=== PATIENT | male | born 1950 | race Caucasian/White ===

== ENCOUNTER 2017-10-31 22:14 | Inpatient (IN) | payer MEDICARE, OTHER ==
[~2017-10-31] VITALS: Ht 182.9 cm; Wt 77.0 kg
[~2017-10-31 22:14] MED LIST: AMLO5TAB16 PO; DOCU100C40 PO; HYDR-3973 PO; INSU100I25 SQ; LACT1CAP26 PO; METO25TA6 PO
[2017-10-31] MEDS ORDERED: dextrose 50%-water 50ml dispensing syringe IV ONE (23:05)
[2017-10-31 23:30] LABS: BASOPHILS % (AUTO) 0 % (0-1); EOSINOPHILS # (AUTO) 0.2 X10'3 (0-0.9); EOSINOPHILS % (AUTO) 1.1 % (0-6); HEMATOCRIT 32.4 % (42.0-52.0); HEMOGLOBIN 11.3 g/dl (14.0-17.9); LYMPHOCYTES # (AUTO) 0.6 X10'3 (1.1-4.8); LYMPHOCYTES % (AUTO) 4.1 % (21-51); MEAN CORPUSCULAR VOLUME 88.3 FL (78-98); MEAN PLATELET VOLUME 6.5 FL (7.4-10.4); MONOCYTES # (AUTO) 1.3 X10'3 (0-0.9); MONOCYTES % (AUTO) 8.4 % (2-12); NEUTROPHILS % (AUTO) 86.4 % (42-75); PLATELET COUNT 137 X10'3 (140-440); RED BLOOD COUNT 3.66 X10'6 (4.70-6.10); RED CELL DISTRIBUTION WIDTH 14.1 % (11.5-14.5)
[2017-10-31 23:46] LABS: ALANINE AMINOTRANSFERASE 42 U/L (12-78); ALBUMIN 3.5 G/DL (3.4-5.0); ALBUMIN/GLOBULIN RATIO 0.7 (1.1-1.5); ALKALINE PHOSPHATASE 90 IU/L (46-116); ANION GAP 13 (8-16); ASPARTATE AMINO TRANSFERASE 26 U/L (10-37); BILIRUBIN,TOTAL 0.5 MG/DL (0.1-1.0); BLOOD UREA NITROGEN 64 MG/DL (7-18); BUN/CREATININE RATIO 22.1 (5.4-32.0); CALCIUM 9.4 MG/DL (8.5-10.1); CHLORIDE 100 MMOL/L (99-107); CREATININE 2.89 MG/DL (0.60-1.10); GLUCOSE 68 MG/DL (70-104); POTASSIUM 3.4 MMOL/L (3.5-5.1); SODIUM 137 MMOL/L (135-145); TOTAL CARBON DIOXIDE 24.1 MMOL/L (24-32); TOTAL PROTEIN 8.6 G/DL (6.4-8.2); eGFR 22 ML/MIN
[2017-11-01] MEDS ORDERED: LANTUS SQ (00:08)
[2017-11-01] MEDS ORDERED: LOSA25TA96 PO (00:08)
[2017-11-01] MEDS ORDERED: ATEN-169 PO (00:08)
[2017-11-01] MEDS ORDERED: ATOR40TA PO (00:08)
[2017-11-01] MEDS ORDERED: normal saline 1000ml 1,000 ML IV ONE (00:15)
[2017-11-01] MEDS: potassium CL 20mEq in D5-1/2NS 1,000 ML IV SCH ×2 (00:16→10:10)
[2017-11-01 00:18] LABS: CLARITY,URINE CLOUDY (Clear); COLOR,URINE YELLOW (Yellow); GLUCOSE, URINE 100 mg/dl (Neg); KETONES,URINE NEGATIVE (Neg); LEUKOCYTE ESTERASE ,URINE LARGE (Neg); NITRITES, URINE NEGATIVE (Neg); OCCULT BLOOD,URINE LARGE (Neg); PROTEIN,URINE 100 mg/dl (Neg); UROBILINOGEN,URINE 0.2 E.U/dL (0.2-1.0)
[2017-11-01 00:31] LABS: UA COLLECTION TYPE CLN CATCH MIDSTREAM
[2017-11-01 00:32] LABS: BACTERIA,URINE FEW /HPF (Neg); SQUAMOUS EPITHELIAL CELL,UR FEW /LPF (FEW); WBC,URINE TNTC /HPF (0-4)
[2017-11-01 00:33] LABS: WBC CLUMPS,URINE MODERATE /HPF (NEGATIVE)
[2017-11-01] MEDS ORDERED: CefTRIAXone/D5W-Rocephin 1gm 50 ML IV ONE (00:40)
[2017-11-01 00:41] LABS: URINE AMPHETAMINE SCREEN NEGATIVE (Neg); URINE BARBITUATE SCREEN NEGATIVE (Neg); URINE BENZODIAZEPINES SCREEN NEGATIVE (Neg); URINE CANNABINOID SCREEN POSITIVE (Neg); URINE COCAINE SCREEN NEGATIVE (Neg); URINE METHADONE SCREEN NEGATIVE (Neg); URINE OPIATE SCREEN NEGATIVE (Neg); URINE PHENCYCLIDINE SCREEN NEGATIVE (Neg)
[2017-11-01] MEDS ORDERED: CefTRIAXone/D5W-Rocephin 1gm 50 ML IV STA (00:45)
[2017-11-01] MEDS: dextrose 5%-1/2 normal saline 1,000 ML IV SCH ×2 (01:59→11:59)
[2017-11-01] MEDS ORDERED: magnesium hydroxide 30ml (MOM) UD suspension PO PRN (02:00)
[2017-11-01] MEDS ORDERED: ondansetron/PF 4mg/2ml inj IV PRN (02:00)
[2017-11-01] MEDS ORDERED: magnesium Cl slow-release 64mg tablet PO PRN (02:00)
[2017-11-01] MEDS ORDERED: potassium Cl 20 mEq SR tablet PO PRN (02:00)
[2017-11-01] MEDS ORDERED: mag hydrox/Alum hydrox/simeth 30ml oral suspension PO PRN (02:00)
[2017-11-01] MEDS ORDERED: magnesium 4gm in 100ml NS 100 ML IV PRN (02:00)
[2017-11-01] MEDS ORDERED: magnesium 2GM in 50ml NS 50 ML IV PRN (02:00)
[2017-11-01] MEDS ORDERED: acetaminophen 325mg tablet PO PRN (02:00)
[2017-11-01] MEDS ORDERED: potassium Cl 40MEQ/NS 500ml 500 ML IV PRN ×2 (02:00)
[2017-11-01] MEDS: K and/or MAG REPLACEMENT MC SCH (08:00)
[2017-11-01] MEDS: amLODIPine 5mg tablet PO SCH (10:11)
[2017-11-01] MEDS: atenolol 50mg tablet PO SCH (10:11)
[2017-11-01] MEDS: CefTRIAXone 2gm/NS 100ml IVPB 100 ML IV SCH (10:11)
[2017-11-01] MEDS: heparin, porcine 5000 units/ml vial SQ SCH ×2 (10:12→19:13)
[2017-11-01] MEDS: potassium Cl 20 mEq SR tablet PO PRN ×3 (10:58→19:12)
[2017-11-01] MEDS: losartan 25mg tablet PO SCH (10:58)
[2017-11-01] MEDS ORDERED: glucagon, human recombinant 1mg kit SUBCUT PRN (12:30)
[2017-11-01] MEDS ORDERED: dextrose ORAL solution 15 GM/59 ML bottle PO PRN ×2 (12:30)
[2017-11-01] MEDS ORDERED: dextrose 50%-water 50ml dispensing syringe IV PRN (12:30)
[2017-11-01] MEDS ORDERED: insulin regular, human vial - multi-dose SQ SCH (15:25)
[2017-11-01] MEDS: insulin Lispro (HumaLOG) vial - multi-dose SQ SCH (18:59)
[2017-11-01] MEDS: lactobacillus rhamnosus 10,000 MMU CELLS/CAPSULE PO SCH (19:12)
[2017-11-01 19:30] VITALS: BP 136/67
[2017-11-01] MEDS: atorvastatin 20mg tablet PO SCH (21:05)
[2017-11-01] MEDS: insulin glargine (Lantus) pen - multi-dose SQ SCH (21:11)
[2017-11-01] MEDS ORDERED: Melatonin 3mg tablet PO PRN (23:35)
[2017-11-02] VITALS (7 sets, daily range): BP systolic 92–143; BP diastolic 55–71
[2017-11-02 05:31] LABS: BASOPHILS % (AUTO) 0 % (0-1); EOSINOPHILS # (AUTO) 0.1 X10'3 (0-0.9); EOSINOPHILS % (AUTO) 1.1 % (0-6); HEMATOCRIT 28.4 % (42.0-52.0); LYMPHOCYTES # (AUTO) 0.7 X10'3 (1.1-4.8); LYMPHOCYTES % (AUTO) 6.4 % (21-51); MEAN CORPUSCULAR HEMOGLOBIN 31.2 PG (27.0-31.0); MEAN CORPUSCULAR HGB CONC 35.4 % (33.0-36.5); MEAN CORPUSCULAR VOLUME 88.1 FL (78-98); MEAN PLATELET VOLUME 7.5 FL (7.4-10.4); MONOCYTES # (AUTO) 0.8 X10'3 (0-0.9); MONOCYTES % (AUTO) 7.6 % (2-12); NEUTROPHILS # (AUTO) 8.9 X10'3 (1.8-7.7); NEUTROPHILS % (AUTO) 84.9 % (42-75); PLATELET COUNT 141 X10'3 (140-440); RED BLOOD COUNT 3.22 X10'6 (4.70-6.10); RED CELL DISTRIBUTION WIDTH 13.8 % (11.5-14.5); WHITE BLOOD COUNT 10.5 X10'3 (4.5-11.0)
[2017-11-02 06:17] LABS: ALANINE AMINOTRANSFERASE 59 U/L (12-78); ALBUMIN 2.8 G/DL (3.4-5.0); ALBUMIN/GLOBULIN RATIO 0.7 (1.1-1.5); ALKALINE PHOSPHATASE 79 IU/L (46-116); ANION GAP 12 (8-16); ASPARTATE AMINO TRANSFERASE 35 U/L (10-37); BILIRUBIN,TOTAL 0.3 MG/DL (0.1-1.0); BLOOD UREA NITROGEN 59 MG/DL (7-18); BUN/CREATININE RATIO 24.2 (5.4-32.0); CALCIUM 8.6 MG/DL (8.5-10.1); CHLORIDE 106 MMOL/L (99-107); CHOL/HDL RATIO 8.8 (0.00-4.99); CHOLESTEROL 114 MG/DL (0-200); CREATININE 2.44 MG/DL (0.60-1.10); GLUCOSE 177 MG/DL (70-104); HDL CHOLESTEROL 13 MG/DL (35-60); LDL CHOLESTEROL 57 MG/DL (50-100); MAGNESIUM 2.1 MG/DL (1.5-2.4); POTASSIUM 4.7 MMOL/L (3.5-5.1); SODIUM 139 MMOL/L (135-145); TRIGLYCERIDES 232 MG/DL (20-135); eGFR 27 ML/MIN
[2017-11-02] MEDS: K and/or MAG REPLACEMENT MC SCH (08:00)
[2017-11-02] MEDS: CefTRIAXone 2gm/NS 100ml IVPB 100 ML IV SCH (08:08)
[2017-11-02] MEDS: amLODIPine 5mg tablet PO SCH (08:11)
[2017-11-02] MEDS: losartan 25mg tablet PO SCH (08:11)
[2017-11-02] MEDS: lactobacillus rhamnosus 10,000 MMU CELLS/CAPSULE PO SCH ×2 (08:11→21:20)
[2017-11-02] MEDS: heparin, porcine 5000 units/ml vial SQ SCH ×2 (08:12→21:10)
[2017-11-02] MEDS: atenolol 50mg tablet PO SCH (08:12)
[2017-11-02] MEDS: insulin Lispro (HumaLOG) vial - multi-dose SQ SCH ×3 (08:52→19:25)
[2017-11-02] MEDS: ferrous sulfate 325mg tablet PO SCH ×2 (13:28→17:41)
[2017-11-02] MEDS: atorvastatin 20mg tablet PO SCH (21:09)
[2017-11-02] MEDS: insulin glargine (Lantus) pen - multi-dose SQ SCH (21:17)
[2017-11-03] VITALS: BP 136/60
[2017-11-03 05:10] LABS: BASOPHILS % (AUTO) 0.1 % (0-1); EOSINOPHILS # (AUTO) 0.1 X10'3 (0-0.9); EOSINOPHILS % (AUTO) 1.5 % (0-6); HEMOGLOBIN 9.4 g/dl (14.0-17.9); LYMPHOCYTES # (AUTO) 1.1 X10'3 (1.1-4.8); LYMPHOCYTES % (AUTO) 14.8 % (21-51); MEAN CORPUSCULAR HEMOGLOBIN 30.5 PG (27.0-31.0); MEAN CORPUSCULAR HGB CONC 34.6 % (33.0-36.5); MEAN CORPUSCULAR VOLUME 88.1 FL (78-98); MEAN PLATELET VOLUME 7.3 FL (7.4-10.4); MONOCYTES # (AUTO) 0.8 X10'3 (0-0.9); MONOCYTES % (AUTO) 11.6 % (2-12); NEUTROPHILS # (AUTO) 5.1 X10'3 (1.8-7.7); PLATELET COUNT 128 X10'3 (140-440); RED BLOOD COUNT 3.07 X10'6 (4.70-6.10); RED CELL DISTRIBUTION WIDTH 13.6 % (11.5-14.5); WHITE BLOOD COUNT 7.1 X10'3 (4.5-11.0)
[2017-11-03 05:21] LABS: ALANINE AMINOTRANSFERASE 73 U/L (12-78); ALBUMIN 2.4 G/DL (3.4-5.0); ALBUMIN/GLOBULIN RATIO 0.6 (1.1-1.5); ALKALINE PHOSPHATASE 72 IU/L (46-116); ANION GAP 11 (8-16); ASPARTATE AMINO TRANSFERASE 37 U/L (10-37); BILIRUBIN,TOTAL 0.3 MG/DL (0.1-1.0); BLOOD UREA NITROGEN 59 MG/DL (7-18); BUN/CREATININE RATIO 22.2 (5.4-32.0); CALCIUM 8.3 MG/DL (8.5-10.1); CHLORIDE 105 MMOL/L (99-107); CREATININE 2.66 MG/DL (0.60-1.10); GLUCOSE 194 MG/DL (70-104); MAGNESIUM 2.1 MG/DL (1.5-2.4); POTASSIUM 4.7 MMOL/L (3.5-5.1); SODIUM 136 MMOL/L (135-145); TOTAL PROTEIN 6.5 G/DL (6.4-8.2); eGFR 24 ML/MIN
[2017-11-03] MEDS: lactobacillus rhamnosus 10,000 MMU CELLS/CAPSULE PO SCH (08:00)
[2017-11-03] MEDS: heparin, porcine 5000 units/ml vial SQ SCH (08:00)
[2017-11-03] MEDS: losartan 25mg tablet PO SCH (08:00)
[2017-11-03] MEDS: amLODIPine 5mg tablet PO SCH (08:00)
[2017-11-03] MEDS: atenolol 50mg tablet PO SCH (08:00)
[2017-11-03] MEDS: K and/or MAG REPLACEMENT MC SCH (08:00)
[2017-11-03] MEDS: CefTRIAXone 2gm/NS 100ml IVPB 100 ML IV SCH (08:00)
[2017-11-03] MEDS: ferrous sulfate 325mg tablet PO SCH ×2 (09:11→12:44)
[2017-11-03] MEDS: insulin Lispro (HumaLOG) vial - multi-dose SQ SCH (09:12)
[2017-11-03 09:21] VITALS: BP 99/60
[2017-11-03] MEDS ORDERED: FER325T PO (09:27)
[2017-11-03] MEDS ORDERED: INSU100I25 SQ (09:27)
[2017-11-03] MEDS ORDERED: CIPR-230 PO (09:29)
[2017-11-03 11:54] VITALS: BP 120/52
== END 2017-11-03 17:18 | disposition home or self-care (01) | DRG 683 ==
LOC: ER 22:14 → ED HOLD 11-01 01:59 → SUR 3N 11-01 19:26
PROVIDERS: ADMIT Internal Medicine; ATTEND Internal Medicine
DX: N17.9 Acute kidney failure, unspecified (principal); N39.0 Urinary tract infection, site not specified; E11.22 Type 2 diabetes mellitus with diabetic chronic kidney disease; E11.649 Type 2 diabetes mellitus with hypoglycemia without coma; I95.2 Hypotension due to drugs; D64.9 Anemia, unspecified; I12.9 Hypertensive chronic kidney disease with stage 1 through stage 4 chronic kidney disease, or unspecified chronic kidney disease; N18.9 Chronic kidney disease, unspecified; E87.6 Hypokalemia; E78.5 Hyperlipidemia, unspecified; T50.905A Adverse effect of unspecified drugs, medicaments and biological substances, initial encounter; F12.90 Cannabis use, unspecified, uncomplicated; Z79.4 Long term (current) use of insulin; Z79.899 Other long term (current) drug therapy; Z87.891 Personal history of nicotine dependence; Y92.89 Other specified places as the place of occurrence of the external cause
CPT/HCPCS: 36415; 71045; 80053; 80061; 80305; 81001; 82948; 83036; 83605; 83735; 85025; 87040; 87070; 87077; 87088; 87186; 96365; 96374; 99285; J0696; J1644; J1815; J7030

== ENCOUNTER 2017-12-09 10:41 | Emergency (ER) | payer MEDICARE, OTHER ==
[~2017-12-09] VITALS: Ht 170.2 cm; Wt 69.0 kg
[~2017-12-09 10:41] MED LIST changes: -AMLO5TAB16 PO; +ATOR40TA PO; -DOCU100C40 PO; +FER325T PO; -HYDR-3973 PO; -LACT1CAP26 PO; -METO25TA6 PO
[2017-12-09] MEDS ORDERED: POLY17PO10 PO (12:56)
[2017-12-09] MEDS ORDERED: bisacodyl 10mg suppository rectal RC STA (12:56)
[2017-12-09] MEDS ORDERED: lactulose 20gm/30ml cup PO ONE (13:00)
[2017-12-09 13:36] VITALS: BP 148/70
== END 2017-12-09 13:38 | disposition home or self-care (01) ==
LOC: ER 10:42
DX: K59.00 Constipation, unspecified (principal); I10 Essential (primary) hypertension; E11.9 Type 2 diabetes mellitus without complications; F12.90 Cannabis use, unspecified, uncomplicated; Z79.4 Long term (current) use of insulin
CPT/HCPCS: 74018; 99283